=== PATIENT | female | born 1950 | race Caucasian/White ===

== ENCOUNTER 2020-03-04 12:59 | Outpatient (CLI) | payer MEDICARE, MEDICAID, SELFPAY ==
[2020-03-04 13:15] VITALS: PULSE 110; O2SAT 91
[2020-03-04 13:20] VITALS: PULSE 122; O2SAT 86
[2020-03-04 13:25] VITALS: PULSE 114; O2SAT 87
[2020-03-04 13:30] VITALS: PULSE 112; O2SAT 90
[2020-03-04 13:37] LABS: Alveolar/Arterial O2 Gradient 28.9 mmHg; Base Excess ABG 7.1 mEq/l (+/-2.0); Carboxyhemoglobin 2.8 % THb (0-2.0); Fractional Inspired Oxygen 21 %; HCO3 ABG 33.6 mEq/l (22.0-26.0); Methemoglobin ABG 0.2 %THb (0-1.5); Oxygen Content ABG 17.4 %vol (16.0-22.0); Oxygen Saturation ABG 87.9 % (95.0-100.0); Oxyhemoglobin 86.5 % THb (90.0-100.0); PCO2 ABG 55.2 mmHg (35.0-45.0); PO2 ABG 54.7 mmHg (80.0-100.0); Reduced Hemoglobin 10.5 %THb (0-5.0); Total Hemoglobin 14.3 g/dL (12.0-18.0); pH ABG 7.402 (7.350-7.450)
[2020-03-04 13:38] LABS: Modified Allen's Test Pass; Site Drawn RIGHT BRACHIAL
[2020-03-04 13:39] LABS: Device ROOM AIR
[2020-03-04 13:45] VITALS: PULSE 108; O2SAT 91
--- NOTE | 2020-03-04 14:25 | HOMEO2EVAL ---
Home Oxygen Evaluation RC: Home Oxygen (O2) Evaluation Start: 03/04/20 14:19 Freq: Status: Active Protocol: RPE Activity Type Activity Date Activity User E-Sign Co-Sign Detail Recorded Client Recorded Date Recorded By Document 03/04/20 13:15 [email or web address] [email or web address] 03/04/20 14:25 DJO Document 03/04/20 13:20 [email or web address] [email or web address] 03/04/20 14:25 DJO Document 03/04/20 13:25 [email or web address] [email or web address] 03/04/20 14:25 DJO Document 03/04/20 13:30 [email or web address] [email or web address] 03/04/20 14:25 DJO Document 03/04/20 13:45 [email or web address] [email or web address] 03/04/20 14:25 DJO 03/04/20 03/04/20 03/04/20 13:15 13:20 13:25 Home O2 Evaluation Test Phase Resting Exercise Exercise Oxygen Delivery Room Air Room Air Nasal Cannula Oxygen Flow Rate (L/min) 1 Pulse Oximetry (90-100 %) 91 86 L 87 L Pulse Rate (60-100 beats/min) 110 H 122 H 114 H Activity Tolerance Rating of Perceived Dyspnea (PD) Ambulation Distance (feet) Treatment Charges O2 Evaluation 03/04/20 03/04/20 13:30 13:45 Home O2 Evaluation Test Phase Exercise Resting Oxygen Delivery Nasal Cannula Room Air Oxygen Flow Rate (L/min) 2 Pulse Oximetry (90-100 %) 90 91 Pulse Rate (60-100 beats/min) 112 H 108 H Activity Tolerance Good Rating of Perceived Dyspnea (PD) +3 Moderate Difficulty, But Can Continue Ambulation Distance (feet) 500 Treatment Charges
--- NOTE | 2020-03-10 15:19 | P.PCNPFT_ITS ---
PFT Interpretation PFT Interpretation: DOS: 03/04/2020 REQUESTING: Dr. Sawyer Amezcua REASON FOR TESTING: COPD PULMONARY FUNCTION TESTS Results are not reliable as the patient was extremely short of breath and had persistent coughing throughout testing. Spirometry: FEV1 is 26% predicted, extremely low, 0.58 L. FVC is 50%, mode rately decreased. The FEV1% is decreased. There is a 23% increase in FVC with bronchodilator, greater than 200 ml. This is statistically significant. Lung volumes: TLC 187%, consistent with severe hyperinflation. the slow vital capacity is 79%, significantly higher than forced vital capacity. this demonstrates dynamic air trapping consistent with obstruction. residual volume severely increased 3 await% consistent with extremely severe air trapping. elevated airway resistance. Diffusion: DLCO 56% moderately decreased. Flow volume loop: Scooping of the expiratory limb. IMPRESSION: Extremely severe obstructive ventilatory impairment with good response to bronchodilator, severe hyperinflation and air trapping, moderate diffusion impairment. This pattern can be seen in COPD. The patient performed the test to the best of her ability with persistent coughing and shortness of breath throughout the test. Irma Johnson MD
== END 2020-03-04 13:00 | disposition home or self-care (01) ==
PROVIDERS: PCP Internal Medicine; Visit Provider Internal Medicine Pulmonary Disease
DX: J44.9 Chronic obstructive pulmonary disease, unspecified (principal); R94.2 Abnormal results of pulmonary function studies
CPT/HCPCS: 36600; 82375; 82805; 83050; 94060; 94618; 94726; 94729